=== PATIENT | male | born 1950 | race Caucasian/White ===

== ENCOUNTER → 2017-08-01 | Outpatient (CLI) | payer MEDICARE ==
[~2017-08-01] MED LIST: ASPI81CH; CENTRUM SILVER1 EAC4; GABA100; HYDACE10B; INDO25; NEOPOLHCSU RIGHTEAR; PRAV20; PRED20; TRAM50; VERA180ER
[2017-08-01 12:52] LABS: BASOPHILS ABSOLUTE AUTO 0.11 K/mm3 (0.00-0.23); BASOPHILS PERCENT AUTO 1 % (0-2); EOSINOPHILS ABSOLUTE AUTO 0.26 K/mm3 (0.00-0.68); EOSINOPHILS PERCENT AUTO 3 % (0-6); Hematocrit 39.8 % (37.0-53.0); Hemoglobin 13.7 g/dL (13.5-17.5); IMMATURE GRAN ABSOLUTE AUTO 0.07 K/mm3 (0.00-0.10); IMMATURE GRAN PERCENT AUTO 1 % (0-1); LYMPHOCYTES ABSOLUTE AUTO 2.95 K/mm3 (0.84-5.20); LYMPHOCYTES PERCENT AUTO 36 % (21-46); MONOCYTES ABSOLUTE AUTO 0.49 K/mm3 (0.16-1.47); MONOCYTES PERCENT AUTO 6 % (4-13); Mean Corpuscular HGB 29.9 pg (26.0-34.0); Mean Corpuscular HGB Conc 34.4 g/dL (31.5-36.5); Mean Corpuscular Volume 87 fL (80-100); Mean Platelet Volume 10.7 fL (9.1-12.4); NEUTROPHILS ABSOLUTE AUTO 4.25 K/mm3 (1.96-9.15); NEUTROPHILS PERCENT AUTO 52 % (41-73); Platelet Count 168 K/mm3 (150-400); RDW Coefficient Variation 13.5 % (11.7-14.2); RDW Standard Deviation 42.7 fL (35.1-46.3); Red Blood Cell Count 4.58 M/mm3 (4.30-5.90); White Blood Cell Count 8.13 K/mm3 (4.00-11.30)
[2017-08-01 13:06] LABS: Anion Gap 10 mmol/L (6-16); Blood Urea Nitrogen 10 mg/dL (8-24); Bun/Creatinine Ratio 11.5 (12.0-20.0); CO2, Blood 27 mmol/L (21-32); Calcium, Blood 9.5 mg/dL (8.5-10.1); Chloride, Blood 102 mmol/L (98-108); Creatinine, Blood 0.87 mg/dL (0.60-1.20); Glomerular Filtration Rate >60 (60-); Glucose, Blood 97 mg/dL (70-99); Potassium, Blood 3.9 mmol/L (3.5-5.5); Sodium, Blood 139 mmol/L (136-145)
[2017-08-01 13:07] LABS: Troponin I <0.017 ng/mL (0.000-0.040)
== END | disposition home or self-care (01) ==
LOC: LAB SHORT 12:48 → LAB EV 12:48
PROVIDERS: Physician Assistant Medical
DX: R06.00 Dyspnea, unspecified (principal); R07.9 Chest pain, unspecified
CPT/HCPCS: 80048; 84484; 85025

== ENCOUNTER 2018-10-08 09:41 | Day surgery (SDC) | payer MEDICARE, OTHER ==
--- NOTE | 2018-10-08 10:04 | NUR ---
AMBULATORY INTO STEP. PT REPORTS LOWER BACK PAIN 05/03. VS WDL. LUNGS CLEAR.
--- NOTE | 2018-10-08 10:57 | NUR ---
Ambulatory in Day Surgery Discharge instructions reviewed with patient. Patient verbalizes understanding. Copy given to patient to take home.
[2018-11-23] MEDS ORDERED: Pravachol40 MG PO (09:20)
[2018-11-23] MEDS ORDERED: Aspirin EC81 MG PO (09:20)
[2018-11-23] MEDS ORDERED: Hair, Skin & N1 EACH PO (09:21)
== END 2018-10-08 10:57 | disposition home or self-care (01) ==
LOC: ORSCMMR 09:41 → ORD 11:00
PROVIDERS: Orthopaedic Surgery
PROC: 3E0R33Z Introduction of Anti-inflammatory into Spinal Canal, Percutaneous Approach (ICD-10-PCS; principal; 2018-10-08 11:00)
DX: M54.16 Radiculopathy, lumbar region (principal); M48.07 Spinal stenosis, lumbosacral region; I10 Essential (primary) hypertension; E78.5 Hyperlipidemia, unspecified; I25.10 Atherosclerotic heart disease of native coronary artery without angina pectoris; F17.210 Nicotine dependence, cigarettes, uncomplicated; Z79.899 Other long term (current) drug therapy
CPT/HCPCS: J1040

== ENCOUNTER 2018-11-26 06:57 | Day surgery (SDC) | payer MEDICARE, OTHER ==
[~2018-11-26] VITALS: Ht 180.3 cm; Wt 85.2 kg
[~2018-11-26 06:57] MED LIST changes: +Aspirin EC81 MG PO; +Hair, Skin & N1 EACH PO; +Pravachol40 MG PO
--- NOTE | 2018-11-26 07:59 | NUR ---
History, Chart, Medications and Allergies reviewed before start of procedure. Patient confirms NPO status and agrees with scheduled surgery. Lungs clear T/O to Auscultation. Patient States Post-Procedure ride home has been arranged. Patient states colon prep results clear. Pre-Op teaching done. Pt verbalizes understanding.
--- NOTE | 2018-11-26 08:42 | NUR ---
11/26/18 0842 David Arteaga History, Chart, Medications and Allergies reviewed before start of procedure.MONITOR INTACT WITH CONTINUOUS PULSE OXIMETRY AND INTERMITTENT BP.3-LEAD EKG REVIEWED WITH PHYSICIAN PRIOR TO START OF PROCEDURE.O2 VIA N/C INTACT THROUGHOUT SEDATION/PROCEDURE. Patient confirms NPO status and agrees with scheduled surgery.PATIENT DETERMINED TO BE ASA APPROPRIATE FOR PROPOFOL SEDATION PRIOR TO START OF PROCEDURE BY DR. WINN.
--- NOTE | 2018-11-26 09:42 | NUR ---
Discharge instructions reviewed with patient. Patient verbalizes understanding. Copy given to patient to take home. TOLERATED WATER WELL, NO C/O. Discharged via wheelchair to private car for ride home.
== END 2018-11-26 23:08 | disposition home or self-care (01) ==
LOC: ORSCMMR 06:57 → ORD 08:30 → ORSCMMR 08:30
PROVIDERS: Internal Medicine Gastroenterology
PROC: 0DBN8ZX Excision of Sigmoid Colon, Via Natural or Artificial Opening Endoscopic, Diagnostic (ICD-10-PCS; principal; 2018-11-26 08:30)
PROC: 0DBK8ZX Excision of Ascending Colon, Via Natural or Artificial Opening Endoscopic, Diagnostic (ICD-10-PCS; principal; 2018-11-26 08:30)
DX: Z12.11 Encounter for screening for malignant neoplasm of colon (principal); K63.5 Polyp of colon; D12.2 Benign neoplasm of ascending colon; D12.5 Benign neoplasm of sigmoid colon; E78.00 Pure hypercholesterolemia, unspecified; F17.210 Nicotine dependence, cigarettes, uncomplicated; J44.9 Chronic obstructive pulmonary disease, unspecified
CPT/HCPCS: 88305; J2704; J7120

== ENCOUNTER → 2018-12-19 | Outpatient (CLI) | payer MEDICARE, OTHER ==
[~2018-12-19] MED LIST changes: +Bactrim Ds Tab1 EACH PO; +CEPH500 PO
== END | disposition home or self-care (01) ==
LOC: PLD 11:50 → LAB SHORT 11:50
DX: D48.5 Neoplasm of uncertain behavior of skin (principal)
CPT/HCPCS: 88305

== ENCOUNTER 2018-12-20 19:03 | Emergency (ER) | payer MEDICARE, OTHER ==
[~2018-12-20] VITALS: Ht 180.3 cm; Wt 87.1 kg
[~2018-12-20 19:03] MED LIST changes: -Bactrim Ds Tab1 EACH PO; -CEPH500 PO
== END 2018-12-20 19:38 | disposition home or self-care (01) ==
LOC: ER 19:03
DX: L76.21 Postprocedural hemorrhage of skin and subcutaneous tissue following a dermatologic procedure (principal); F17.210 Nicotine dependence, cigarettes, uncomplicated
CPT/HCPCS: 99283

== ENCOUNTER 2019-02-09 13:49 | Emergency (ER) | payer MEDICARE, OTHER ==
[~2019-02-09] VITALS: Ht 180.3 cm; Wt 87.1 kg
[2019-02-09] MEDS ORDERED: CEPH500 PO (14:30)
[2019-02-09] MEDS ORDERED: Bactrim Ds Tab1 EACH PO (14:39)
== END 2019-02-09 14:52 | disposition home or self-care (01) ==
LOC: ER 13:49
DX: L03.213 Periorbital cellulitis (principal); F17.200 Nicotine dependence, unspecified, uncomplicated; Z85.828 Personal history of other malignant neoplasm of skin; Z88.8 Allergy status to other drugs, medicaments and biological substances; Z91.018 Allergy to other foods; Z79.899 Other long term (current) drug therapy; Z79.82 Long term (current) use of aspirin
CPT/HCPCS: 99283

== ENCOUNTER 2019-07-25 17:29 | Emergency (ER) | payer MEDICARE, OTHER ==
[~2019-07-25] VITALS: Ht 180.3 cm; Wt 86.2 kg
[~2019-07-25 17:29] MED LIST changes: +Bactrim Ds Tab1 EACH PO; +CEPH500 PO
[2019-07-25] MEDS ORDERED: Cleocin HCl300 MG PO (18:49)
[2019-07-25] MEDS ORDERED: Norco 5-325 Ta1 EACH PO (18:51)
== END 2019-07-25 19:05 | disposition home or self-care (01) ==
LOC: ER 17:29
DX: K02.9 Dental caries, unspecified (principal); Z88.8 Allergy status to other drugs, medicaments and biological substances; E78.00 Pure hypercholesterolemia, unspecified; F17.210 Nicotine dependence, cigarettes, uncomplicated; Z88.6 Allergy status to analgesic agent; Z79.82 Long term (current) use of aspirin; Z79.899 Other long term (current) drug therapy
CPT/HCPCS: 99283; A9270-GY

== ENCOUNTER 2020-05-23 14:38 | Emergency (ER) | payer MEDICARE, SELFPAY ==
[~2020-05-23] VITALS: Ht 180.3 cm; Wt 89.8 kg
[~2020-05-23 14:38] MED LIST changes: -Aspirin EC81 MG PO; +Cleocin HCl300 MG PO; -Hair, Skin & N1 EACH PO; +Norco 5-325 Ta1 EACH PO; -Pravachol40 MG PO
[2020-05-23 15:14] LABS: BASOPHILS ABSOLUTE AUTO 0.09 K/mm3 (0.00-0.23); BASOPHILS PERCENT AUTO 1 % (0-2); EOSINOPHILS ABSOLUTE AUTO 0.17 K/mm3 (0.00-0.68); EOSINOPHILS PERCENT AUTO 2 % (0-6); Hemoglobin 13.8 g/dL (13.5-17.5); IMMATURE GRAN ABSOLUTE AUTO 0.06 K/mm3 (0.00-0.10); IMMATURE GRAN PERCENT AUTO 1 % (0-1); LYMPHOCYTES ABSOLUTE AUTO 2.97 K/mm3 (0.84-5.20); LYMPHOCYTES PERCENT AUTO 34 % (21-46); MONOCYTES ABSOLUTE AUTO 0.55 K/mm3 (0.16-1.47); MONOCYTES PERCENT AUTO 6 % (4-13); Mean Corpuscular HGB 29.1 pg (26.0-34.0); Mean Corpuscular HGB Conc 32.9 g/dL (31.5-36.5); Mean Corpuscular Volume 88 fL (80-100); Mean Platelet Volume 11.6 fL (9.1-12.4); NEUTROPHILS ABSOLUTE AUTO 4.98 K/mm3 (1.96-9.15); NEUTROPHILS PERCENT AUTO 57 % (41-73); Platelet Count 173 K/mm3 (150-400); RDW Coefficient Variation 13.2 % (11.7-14.2); RDW Standard Deviation 42.8 fL (35.1-46.3); Red Blood Cell Count 4.75 M/mm3 (4.30-5.90); White Blood Cell Count 8.82 K/mm3 (4.00-11.30)
[2020-05-23 15:36] LABS: Alanine Aminotransfer (ALT/SGP 30 U/L (12-78); Albumin, Blood 3.7 g/dL (3.4-5.0); Albumin/Globulin Ratio 1.1 (0.8-1.8); Alk Phos 89 U/L (50-136); Anion Gap 8 mmol/L (6-16); Aspartate Aminotrans (AST/SGOT 19 U/L (12-37); Bilirubin, Total 0.3 mg/dL (0.1-1.0); Blood Urea Nitrogen 11 mg/dL (8-24); Bun/Creatinine Ratio 12.2 (12.0-20.0); CO2, Blood 24 mmol/L (21-32); Chloride, Blood 108 mmol/L (98-108); Creatinine, Blood 0.91 mg/dL (0.60-1.20); Globulin, Blood 3.5 g/dL (2.2-4.0); Glomerular Filtration Rate >60 (60-); Glucose, Blood 97 mg/dL (70-99); Potassium, Blood 3.7 mmol/L (3.5-5.5); Sodium, Blood 140 mmol/L (136-145); Total Protein, Blood 7.2 g/dL (6.4-8.2); Troponin I 0.039 ng/mL (0.000-0.040)
[2020-05-23] MEDS ORDERED: Pravachol40 MG PO (15:37)
[2020-05-23] MEDS ORDERED: Hair, Skin & N1 EACH PO (16:25)
[2020-05-23] MEDS ORDERED: Aspirin EC81 MG PO (16:25)
[2020-05-23] MEDS ORDERED: Acetaminophen325 M1 PO (16:26)
[2020-05-23] MEDS ORDERED: Prednisone50 MG PO (19:44)
[2020-05-23] MEDS ORDERED: AZIT250 PO (19:44)
[2020-05-23] MEDS ORDERED: Ventolin/Prove6.7 GM INH (19:44)
== END 2020-05-23 20:00 | disposition home or self-care (01) ==
LOC: ER 14:38
PROVIDERS: Physician Assistant
DX: J44.1 Chronic obstructive pulmonary disease with (acute) exacerbation (principal); R07.9 Chest pain, unspecified; E78.00 Pure hypercholesterolemia, unspecified; Z79.52 Long term (current) use of systemic steroids; Z79.82 Long term (current) use of aspirin; Z88.6 Allergy status to analgesic agent; Z88.5 Allergy status to narcotic agent; Z79.899 Other long term (current) drug therapy; Z87.891 Personal history of nicotine dependence
CPT/HCPCS: 36415; 71046; 71260; 80053; 84484; 85025; 93005; 93010; 93971; 94640; 99285-25; J7512; Q9967

== ENCOUNTER 2020-06-01 14:14 | Inpatient (IN) | payer MEDICARE, SELFPAY ==
[~2020-06-01] VITALS: Ht 180.3 cm; Wt 83.9 kg
[~2020-06-01 14:14] MED LIST changes: +AZIT250 PO; +Acetaminophen325 M1 PO; +Aspirin EC81 MG PO; +Hair, Skin & N1 EACH PO; +Pravachol40 MG PO; +Prednisone50 MG PO; +Ventolin/Prove6.7 GM INH
[2020-06-01 15:26] LABS: BASOPHILS ABSOLUTE AUTO 0.11 K/mm3 (0.00-0.23); BASOPHILS PERCENT AUTO 1 % (0-2); EOSINOPHILS ABSOLUTE AUTO 0.24 K/mm3 (0.00-0.68); EOSINOPHILS PERCENT AUTO 2 % (0-6); Hematocrit 40.6 % (37.0-53.0); Hemoglobin 13.5 g/dL (13.5-17.5); IMMATURE GRAN ABSOLUTE AUTO 0.15 K/mm3 (0.00-0.10); IMMATURE GRAN PERCENT AUTO 1 % (0-1); LYMPHOCYTES ABSOLUTE AUTO 3.65 K/mm3 (0.84-5.20); LYMPHOCYTES PERCENT AUTO 34 % (21-46); MONOCYTES ABSOLUTE AUTO 0.76 K/mm3 (0.16-1.47); MONOCYTES PERCENT AUTO 7 % (4-13); Mean Corpuscular HGB 29.5 pg (26.0-34.0); Mean Corpuscular HGB Conc 33.3 g/dL (31.5-36.5); Mean Corpuscular Volume 89 fL (80-100); Mean Platelet Volume 11.8 fL (9.1-12.4); NEUTROPHILS ABSOLUTE AUTO 5.86 K/mm3 (1.96-9.15); NEUTROPHILS PERCENT AUTO 54 % (41-73); Platelet Count 183 K/mm3 (150-400); RDW Coefficient Variation 13.5 % (11.7-14.2); RDW Standard Deviation 43.8 fL (35.1-46.3); Red Blood Cell Count 4.58 M/mm3 (4.30-5.90); White Blood Cell Count 10.77 K/mm3 (4.00-11.30)
[2020-06-01 19:54] LABS: Alanine Aminotransfer (ALT/SGP 34 U/L (12-78); Albumin, Blood 3.9 g/dL (3.4-5.0); Albumin/Globulin Ratio 1.3 (0.8-1.8); Alk Phos 81 U/L (50-136); Anion Gap 5 mmol/L (6-16); Aspartate Aminotrans (AST/SGOT 14 U/L (12-37); Bilirubin, Total 0.3 mg/dL (0.1-1.0); Blood Urea Nitrogen 12 mg/dL (8-24); Bun/Creatinine Ratio 13.2 (12.0-20.0); CO2, Blood 26 mmol/L (21-32); Calcium, Blood 9.1 mg/dL (8.5-10.1); Chloride, Blood 109 mmol/L (98-108); Creatinine, Blood 0.91 mg/dL (0.60-1.20); Glomerular Filtration Rate >60 (60-); Glucose, Blood 107 mg/dL (70-99); Potassium, Blood 3.9 mmol/L (3.5-5.5); Sodium, Blood 140 mmol/L (136-145); Total Protein, Blood 6.9 g/dL (6.4-8.2); Troponin I 0.049 ng/mL (0.000-0.040)
[2020-06-01] MEDS ORDERED: Ventolin/Prove6.7 GM INH (21:02)
[2020-06-01] MEDS ORDERED: BUPR150ER PO (21:03)
[2020-06-01] MEDS ORDERED: PRAVASTATIN SOD40 MG PO (21:03)
[2020-06-02 03:28] LABS: BASOPHILS ABSOLUTE AUTO 0.04 K/mm3 (0.00-0.23); BASOPHILS PERCENT AUTO 0 % (0-2); EOSINOPHILS ABSOLUTE AUTO 0.03 K/mm3 (0.00-0.68); EOSINOPHILS PERCENT AUTO 0 % (0-6); Hematocrit 40.4 % (37.0-53.0); Hemoglobin 13.4 g/dL (13.5-17.5); IMMATURE GRAN ABSOLUTE AUTO 0.16 K/mm3 (0.00-0.10); IMMATURE GRAN PERCENT AUTO 2 % (0-1); LYMPHOCYTES ABSOLUTE AUTO 1.13 K/mm3 (0.84-5.20); LYMPHOCYTES PERCENT AUTO 11 % (21-46); MONOCYTES ABSOLUTE AUTO 0.17 K/mm3 (0.16-1.47); MONOCYTES PERCENT AUTO 2 % (4-13); Mean Corpuscular HGB 29.3 pg (26.0-34.0); Mean Corpuscular HGB Conc 33.2 g/dL (31.5-36.5); Mean Corpuscular Volume 88 fL (80-100); Mean Platelet Volume 11.7 fL (9.1-12.4); NEUTROPHILS ABSOLUTE AUTO 8.69 K/mm3 (1.96-9.15); NEUTROPHILS PERCENT AUTO 85 % (41-73); Platelet Count 168 K/mm3 (150-400); RDW Coefficient Variation 13.4 % (11.7-14.2); RDW Standard Deviation 43.4 fL (35.1-46.3); Red Blood Cell Count 4.57 M/mm3 (4.30-5.90); White Blood Cell Count 10.22 K/mm3 (4.00-11.30)
[2020-06-02 03:50] LABS: Anion Gap 9 mmol/L (6-16); Blood Urea Nitrogen 16 mg/dL (8-24); Bun/Creatinine Ratio 15.7 (12.0-20.0); CO2, Blood 23 mmol/L (21-32); Calcium, Blood 8.9 mg/dL (8.5-10.1); Chloride, Blood 109 mmol/L (98-108); Creatinine, Blood 1.02 mg/dL (0.60-1.20); Glomerular Filtration Rate >60 (60-); Glucose, Blood 144 mg/dL (70-99); Sodium, Blood 141 mmol/L (136-145); Troponin I 0.025 ng/mL (0.000-0.040)
--- NOTE | 2020-06-02 10:28 | NUR ---
ECHOCARDIOGRAM COMPLETED
--- NOTE | 2020-06-02 15:24 | NUR ---
PT ARRIVED IN THE UNIT VIA STRETCHER PT WAS ABLE TO AMBULATE STAND BY ASSISTS TO ROOM BED. PT ALERT AND ORIENTED X4 AT BASELINE, PT IS HERE FOR ACUTE ON CHRONIC CHF, PT HAS BEEN RECEIVING LASIX DOSE IN THE ER, STATED HE FEELS MUCH BETTER, STILL HAS MILD SOB/SOB WITH EXERTION. PT WANTING TO GET IN THE SHOWER UPON ARRIVAL WAS INFORMED TO WAIT UNTIL ASSESSMENT AND ADMIT STUFFS ARE DONE, PT WAS AGREEABLE. PT DENIES CHEST PAIN/PRESSURE, STATED HE HAD CRAMPING PAIN LIKE ON THE LEFT UPPER CHEST THIS AM THAT DIDNT LAST LONG. VITALS HRR SR BBB 100'S, BP SYSTOLIC 110'S, SATS ABOVE 95% ON RA, AFEBRILE. PT IS NOW CURRENTLY IN THE SHOWER. NO OTHER ISSUES AT THIS TIME, WILL MONITOR UNTIL END OF SHIFT
[2020-06-03 04:52] LABS: Hematocrit 38.5 % (37.0-53.0); Hemoglobin 12.9 g/dL (13.5-17.5); Mean Corpuscular HGB 29.3 pg (26.0-34.0); Mean Corpuscular HGB Conc 33.5 g/dL (31.5-36.5); Mean Corpuscular Volume 87 fL (80-100); Mean Platelet Volume 11.8 fL (9.1-12.4); Platelet Count 172 K/mm3 (150-400); RDW Coefficient Variation 13.4 % (11.7-14.2); RDW Standard Deviation 43.2 fL (35.1-46.3); Red Blood Cell Count 4.41 M/mm3 (4.30-5.90); White Blood Cell Count 13.83 K/mm3 (4.00-11.30)
[2020-06-03 05:08] LABS: Anion Gap 9 mmol/L (6-16); Blood Urea Nitrogen 19 mg/dL (8-24); Bun/Creatinine Ratio 16.8 (12.0-20.0); CO2, Blood 26 mmol/L (21-32); Calcium, Blood 8.4 mg/dL (8.5-10.1); Chloride, Blood 107 mmol/L (98-108); Creatinine, Blood 1.13 mg/dL (0.60-1.20); Glomerular Filtration Rate >60 (60-); Glucose, Blood 110 mg/dL (70-99); Potassium, Blood 3.6 mmol/L (3.5-5.5); Sodium, Blood 142 mmol/L (136-145)
--- NOTE | 2020-06-03 06:04 | NUR ---
SHIFT SUMMARY PT IS A 70 Y/O MALE, ADMITTED FOR ACUTE ON CHRONIC CHF. HE IS A&O X 4, SBA TO THE BATHROOM. PT DENIED ANY COMPLAINTS OF PAIN OR NAUSEA, BUT REPORTED MILD DYSPNEA WITH EXERTION. VITAL SIGNS STABLE. PT SLEPT WELL THROUGH THE NIGHT. NO ACUTE CHANGES IN PT CONDITION NOTED. WILL CONTINUE TO MONITOR AND TREAT PER EMAR UNTIL HAND OFF TO DAY SHIFT RN.
--- NOTE | 2020-06-03 17:47 | NUR ---
PT SUMMARY: PT WITH NO ACUTE CHANGE FOR THE SHIFT, BP WAS ON THE LOW SIDE THIS MORNING AT [address] WEINSTEIN, DR SOLANO CAME AND SAW PT RESUMED LASIX AT 20MG IV Q6 HRS HOLD IF MAP IS BELOW 65, PT TO BE NPO AFTER MIDNIGHT FOR ANGIO PROCEDURE IN AM, PENDING COVID SWAB PRE PROCEDURE FOR TOMORROW, EF LOW AT 15% PT WAS A LITTLE BIT EMOTIONAL ABOUT THE RESULTS, PT PROVIDED EDUCATION AND PLAN OF CARE. PT STILL HAS MILD SOB PT STATED IT STAYED THE SAME, DENIES CHEST PAIN/PRESSURE. NO OTHER ISSUES ENCOUNTERED, ABLE TO MAKE NEEDS KNOWN, WILL MONITOR UNTIL END OF SHIFT
[2020-06-03 18:16] LABS: Influenza A, PCR NEGATIVE (NEGATIVE); Influenza B, PCR NEGATIVE (NEGATIVE); Resp Syncytial Virus, PCR NEGATIVE (NEGATIVE); SARS-Cov-2 (COVID-19) PCR, MMC NEGATIVE (NEGATIVE)
--- NOTE | 2020-06-04 06:01 | NUR ---
SHIFT SUMMARY PATIENT PLEASENT AND COOPERATIVE THROUGHOUT THE NIGHT. PATIENT REQUESTED SOMETHING TO HELP HIM SLEEP STATING HE JUST HASN'T BEEN SLEEPING WELL RECENTLY. PATIENT THEN APPEARED TO SLEEP WELL THROUGHOUT THE REST OF THE NIGHT ONCE SLEEPING AID WAS OBTAINED FROM NURSE PRACTIONER SUKI AND GIVEN PER EMAR. THIS MORNING PATIENT STATED THAT HE FELT HE SLEPT MUCH BETTER TONIGHT. PATIENT HAS BEEN NPO SINCE 0000. VITAL SIGNS CHARTED. MAPS HAVE BEEN GREATER THAN 65. PATIENT CURRENTLY APPEARS TO BE SLEEPING WELL. WILL CONTINUE CURRENT PLAN OF CARE.
--- NOTE | 2020-06-04 17:51 | NUR ---
SHIFT SUMMARY NO ACUTE EVENTS THIS SHIFT, VSS. PATIENT HAD ANGIO TODAY, R. RADIAL SITE RECOVERED WITHOUT EVENT, NO DRAINAGE/HEMATOMA NOTED AT RADIAL PUNCTURE SITE. R. AC VENOUS SITE COVERED WITH DRESSING, SMALL DRAINAGE NOTED ON ARRIVAL TO UNIT, NO ADDITIONAL DRAINAGE NOTED REST OF SHIFT. PATIENT DENIES CHEST PAIN THIS SHIFT. CONTINUED ON IV LASIX FOR DIURESIS, BREATHING TREATMENTS PER RT.
[2020-06-05 04:48] LABS: Hemoglobin 14.1 g/dL (13.5-17.5); Mean Corpuscular HGB 28.8 pg (26.0-34.0); Mean Corpuscular HGB Conc 32.8 g/dL (31.5-36.5); Mean Corpuscular Volume 88 fL (80-100); Mean Platelet Volume 11.8 fL (9.1-12.4); Platelet Count 175 K/mm3 (150-400); RDW Coefficient Variation 13.4 % (11.7-14.2); RDW Standard Deviation 43.1 fL (35.1-46.3); Red Blood Cell Count 4.89 M/mm3 (4.30-5.90); White Blood Cell Count 10.11 K/mm3 (4.00-11.30)
[2020-06-05 05:36] LABS: Anion Gap 8 mmol/L (6-16); Blood Urea Nitrogen 29 mg/dL (8-24); Bun/Creatinine Ratio 25.2 (12.0-20.0); CO2, Blood 28 mmol/L (21-32); Calcium, Blood 8.7 mg/dL (8.5-10.1); Chloride, Blood 104 mmol/L (98-108); Creatinine, Blood 1.15 mg/dL (0.60-1.20); Glomerular Filtration Rate >60 (60-); Glucose, Blood 107 mg/dL (70-99); Potassium, Blood 3.1 mmol/L (3.5-5.5); Sodium, Blood 140 mmol/L (136-145)
--- NOTE | 2020-06-05 06:33 | NUR ---
SHIFT SUMMARY NO ACUTE CHANGES THIS SHIFT. VSS. RW SITE STABLE. RAC VNOUS SITE STABLE. PT DENYING CP/PRESSURE THIS SHIFT. REMAINS IN SR BBB. RECEIVING IV LASIX AND VOIDING. USES CALL LIGHT APPROPRIATELY. WILL CONTINUE TO MONITOR UNTIL SHIFT CHANGE.
--- NOTE | 2020-06-05 17:02 | NUR ---
SHIFT SUMMARY NO ACUTE EVENTS THIS SHIFT, VSS. PATIENT ALERT AND ORIENTED, SBA TO BATHROOM, UP FOR SHOWER THIS SHIFT AND TOLERATED WELL. NO SIGNS OF DISCHARGE AT R. WRIST ANGIO PUNCTURE SITE, ARM BOARD IN PLACE. IV DIURESIS CONTINUED WITH LASIX THIS SHIFT, PO K+ REPLACEMENT STARTED. BNP REMAINS ELEVATED. DR. SOLANO DISCUSSED POSSIBILITY OF GOING HOME WITH A LIFE VEST WITH PATIENT TODAY, PATIENT AGREEBLE. RECIEVED BREATHING TREATMENTS PER RT.
[2020-06-06 04:05] LABS: Hematocrit 40.7 % (37.0-53.0); Hemoglobin 13.6 g/dL (13.5-17.5); Mean Corpuscular HGB 29.2 pg (26.0-34.0); Mean Corpuscular HGB Conc 33.4 g/dL (31.5-36.5); Mean Corpuscular Volume 87 fL (80-100); Mean Platelet Volume 11.8 fL (9.1-12.4); Platelet Count 163 K/mm3 (150-400); RDW Coefficient Variation 13.2 % (11.7-14.2); RDW Standard Deviation 41.9 fL (35.1-46.3); Red Blood Cell Count 4.66 M/mm3 (4.30-5.90); White Blood Cell Count 11.89 K/mm3 (4.00-11.30)
[2020-06-06 04:23] LABS: Alanine Aminotransfer (ALT/SGP 33 U/L (12-78); Albumin, Blood 3.6 g/dL (3.4-5.0); Albumin/Globulin Ratio 1.1 (0.8-1.8); Alk Phos 77 U/L (50-136); Anion Gap 7 mmol/L (6-16); Aspartate Aminotrans (AST/SGOT 14 U/L (12-37); Bilirubin, Total 0.6 mg/dL (0.1-1.0); Blood Urea Nitrogen 35 mg/dL (8-24); Bun/Creatinine Ratio 30.2 (12.0-20.0); CO2, Blood 29 mmol/L (21-32); Calcium, Blood 8.7 mg/dL (8.5-10.1); Chloride, Blood 103 mmol/L (98-108); Creatinine, Blood 1.16 mg/dL (0.60-1.20); Globulin, Blood 3.3 g/dL (2.2-4.0); Glomerular Filtration Rate >60 (60-); Glucose, Blood 98 mg/dL (70-99); Potassium, Blood 3.2 mmol/L (3.5-5.5); Sodium, Blood 139 mmol/L (136-145); Total Protein, Blood 6.9 g/dL (6.4-8.2)
--- NOTE | 2020-06-06 05:18 | NUR ---
SHIFT SUMMARY NO ACUTE CHANGES THIS SHIFT. VSS. RW SITE REMAINS STABLE. PT CONTINUING TO DENY CP/PRESSURE BUT DOES HAVE EPISODES OF SOB THAT RESOLVE. SOFT BP'S BUT MAAP >65. PT UP TO BATHROOM WITH ASSIST. WILL CONTINUE TO MONITOR UNTIL SHIFT CHANGE.
--- NOTE | 2020-06-06 17:19 | NUR ---
SHIFT SUMMARY NO ACUTE EVENTS THIS SHIFT, PATIENT DENIED CHEST PAIN/PRESSURE, VSS. PATIENT ABLE TO AMBULATE IN ROOM AND TO BATHROOM WITH SBA. PATIENT ALERT AND ORIENTED, ON ROOM AIR, RECIEVED BREATHING TREATMENTS PER RT. VSS, NO SIGNS OF DISCHARGE/HEMATOMA AT R. RADIAL SITE.
--- NOTE | 2020-06-06 17:20 | NUR ---
REPORT GIVEN TO JOSELYN BLANCO ON SURGICAL.
--- NOTE | 2020-06-06 18:09 | NUR ---
PT TO ROOM 208 FROM PCU. TELE CONFIRMED. THIS RN BEEN GIVEN REPORT. ASSUMING CARE OF PT AT THIS TIME, WILL GIVE REPORT TO YADIRA RN.
--- NOTE | 2020-06-06 18:50 | NUR ---
REPORT GIVEN TO YADIRA RN.
--- NOTE | 2020-06-07 04:24 | NUR ---
SHIFT SUMMARY PT RESTED WELL T/O NIGHT. AAOX4. PT DENIES DISCOMFORT/NAUSEA/EMESIS THIS SHIFT. PT REPORTING INTERMITTENT SOB SPELLS WITH MINIMAL EXERTION, DENIES THIS SHIFT. TELEMTRY IN PLACE, NSR WITH BBB 80s TO 90s. SBA UP TO RESTROOM. GOOD PO INTAKE + OUTPUT. NO ACUTE CHANGES OVER NIGHT. PT CURRENTLY RESTING IN BED WITH CALL LIGHT IN REACH.
[2020-06-07 10:17] LABS: Anion Gap 5 mmol/L (6-16); Blood Urea Nitrogen 31 mg/dL (8-24); Bun/Creatinine Ratio 31.5 (12.0-20.0); CO2, Blood 29 mmol/L (21-32); Calcium, Blood 8.9 mg/dL (8.5-10.1); Chloride, Blood 103 mmol/L (98-108); Creatinine, Blood 0.98 mg/dL (0.60-1.20); Glomerular Filtration Rate >60 (60-); Glucose, Blood 103 mg/dL (70-99); Magnesium, Blood 2.6 mg/dL (1.6-2.4); Potassium, Blood 3.8 mmol/L (3.5-5.5); Sodium, Blood 137 mmol/L (136-145)
--- NOTE | 2020-06-07 15:41 | NUR ---
SHIFT SUMMARY PT A&OX4, VSS, ANANDA PO, DENIES SOB, DENIES PAIN, AMBULATING INDEPENDENTLY TO BRP/IN ROOM. WILL REPORT TO ONCOMING NOC RN.
--- NOTE | 2020-06-08 04:29 | NUR ---
SHIFT SUMMARY: MAKENZIE IS A&OX4. VSS, NO ACUTE EVENTS OVERNIGHT, MAINTAINING SATS ORA. HE DENIES ANY PAIN. HE REPORTS HAVING AN APPOINTMENT WITH DR. AGUILAR TODAY WHICH HE WAS ENCOURAGED TO CALL THE OFFICE AND RESCHEDULE. HE IS INDEPENDENT IN THE ROOM, VOIDING WITHOUT DIFFICULTY. HE USES THE CALL LIGHT APPROPRIATELY. HE IS LYING IN BED WITH EVEN, UNLABORED RESPIRATIONS, EYES CLOSED. WILL REPORT TO DAY SHIFT RN.
[2020-06-08 09:49] LABS: Anion Gap 5 mmol/L (6-16); Blood Urea Nitrogen 24 mg/dL (8-24); Bun/Creatinine Ratio 24.6 (12.0-20.0); CO2, Blood 28 mmol/L (21-32); Calcium, Blood 8.6 mg/dL (8.5-10.1); Chloride, Blood 104 mmol/L (98-108); Creatinine, Blood 0.98 mg/dL (0.60-1.20); Glomerular Filtration Rate >60 (60-); Glucose, Blood 101 mg/dL (70-99); Potassium, Blood 4.2 mmol/L (3.5-5.5); Sodium, Blood 137 mmol/L (136-145)
[2020-06-08] MEDS ORDERED: FURO40 PO (13:06)
[2020-06-08] MEDS ORDERED: Lisinopril2.5 MG PO (13:07)
[2020-06-08] MEDS ORDERED: POTCHL20ER PO (13:09)
[2020-06-08] MEDS ORDERED: METO25ER PO (13:09)
--- NOTE | 2020-06-08 15:46 | NUR ---
DC'D HOME, DC INSTRUCTIONS GIVEN TO PT AND SIG. OTHER, VERBALIZED UNDERSTANDING, PER ANGEL Garcia/ ADDISON, PT HAS HAD EDUCATION ON LIFE VEST APPLICATION AND USE, PT WAS ABLE TO PUT VEST ON WITHOUT DIFFICULTY, IV DC'D, CATH INTACT.
== END 2020-06-08 15:35 | disposition home or self-care (01) | DRG 287 ==
LOC: ER 14:14 → ERHOLD 21:49 → PCU 21:49 → SURS 06-06 18:50
PROVIDERS: Internal Medicine; Internal Medicine Cardiovascular Disease; Nurse Practitioner Acute Care; Physician Assistant; ADMIT Family Medicine
PROC: 4A023N8 Measurement of Cardiac Sampling and Pressure, Bilateral, Percutaneous Approach (ICD-10-PCS; principal; 2020-06-04)
PROC: B211YZZ Fluoroscopy of Multiple Coronary Arteries using Other Contrast (ICD-10-PCS; 2020-06-04)
DX: I11.0 Hypertensive heart disease with heart failure (principal); I42.8 Other cardiomyopathies; I50.43 Acute on chronic combined systolic (congestive) and diastolic (congestive) heart failure; J44.9 Chronic obstructive pulmonary disease, unspecified; E78.5 Hyperlipidemia, unspecified; E87.6 Hypokalemia; I27.22 Pulmonary hypertension due to left heart disease; Z87.891 Personal history of nicotine dependence; I25.10 Atherosclerotic heart disease of native coronary artery without angina pectoris; I08.2 Rheumatic disorders of both aortic and tricuspid valves
CPT/HCPCS: 0241U; 36415; 71046; 76937; 80048; 80053; 83735; 83880; 84484; 85025; 85027; 93005; 93010; 93460; 94640; 94760; 94762; 96372-59; 96374; 96375; 96376; 97112; 97162; 99152; 99153; 99285-25; A9270; C1769; C1894; C8929; J1100; J1644; J1650; J1940; J2250; J3010; J7030; J7050; Q9967

== ENCOUNTER 2020-07-11 11:36 | Emergency (ER) | payer MEDICARE, SELFPAY ==
[~2020-07-11] VITALS: Ht 180.3 cm; Wt 86.2 kg
[~2020-07-11 11:36] MED LIST changes: +BUPR150ER PO; +FURO40 PO; +Lisinopril2.5 MG PO; +METO25ER PO; +POTCHL20ER PO; +PRAVASTATIN SOD40 MG PO
[2020-07-11] MEDS ORDERED: ENTRESTO 24 MG1 EACH PO (12:15)
[2020-07-11 12:22] LABS: BASOPHILS PERCENT AUTO 1 % (0-2); EOSINOPHILS ABSOLUTE AUTO 0.15 K/mm3 (0.00-0.68); EOSINOPHILS PERCENT AUTO 2 % (0-6); Hematocrit 38.2 % (37.0-53.0); Hemoglobin 12.5 g/dL (13.5-17.5); IMMATURE GRAN ABSOLUTE AUTO 0.02 K/mm3 (0.00-0.10); IMMATURE GRAN PERCENT AUTO 0 % (0-1); LYMPHOCYTES ABSOLUTE AUTO 2.27 K/mm3 (0.84-5.20); LYMPHOCYTES PERCENT AUTO 31 % (21-46); MONOCYTES ABSOLUTE AUTO 0.42 K/mm3 (0.16-1.47); MONOCYTES PERCENT AUTO 6 % (4-13); Mean Corpuscular HGB 28.7 pg (26.0-34.0); Mean Corpuscular HGB Conc 32.7 g/dL (31.5-36.5); Mean Corpuscular Volume 88 fL (80-100); NEUTROPHILS ABSOLUTE AUTO 4.37 K/mm3 (1.96-9.15); NEUTROPHILS PERCENT AUTO 60 % (41-73); Platelet Count 149 K/mm3 (150-400); RDW Coefficient Variation 13.2 % (11.7-14.2); RDW Standard Deviation 41.9 fL (35.1-46.3); Red Blood Cell Count 4.36 M/mm3 (4.30-5.90); White Blood Cell Count 7.33 K/mm3 (4.00-11.30)
[2020-07-11 12:36] LABS: Alanine Aminotransfer (ALT/SGP 29 U/L (12-78); Albumin, Blood 3.9 g/dL (3.4-5.0); Albumin/Globulin Ratio 1.2 (0.8-1.8); Alk Phos 88 U/L (50-136); Anion Gap 7 mmol/L (6-16); Aspartate Aminotrans (AST/SGOT 18 U/L (12-37); Bilirubin, Total 0.4 mg/dL (0.1-1.0); Blood Urea Nitrogen 17 mg/dL (8-24); Bun/Creatinine Ratio 17.2 (12.0-20.0); CO2, Blood 22 mmol/L (21-32); Calcium, Blood 8.8 mg/dL (8.5-10.1); Chloride, Blood 110 mmol/L (98-108); Creatinine, Blood 0.99 mg/dL (0.60-1.20); Globulin, Blood 3.3 g/dL (2.2-4.0); Glomerular Filtration Rate >60 (60-); Glucose, Blood 122 mg/dL (70-99); Sodium, Blood 139 mmol/L (136-145); Total Protein, Blood 7.2 g/dL (6.4-8.2); Troponin I <0.015 ng/mL (0.000-0.040)
== END 2020-07-11 14:06 | disposition home or self-care (01) ==
LOC: ER 11:36
PROVIDERS: Emergency Medicine
DX: I50.9 Heart failure, unspecified (principal); Z79.82 Long term (current) use of aspirin; Z79.899 Other long term (current) drug therapy; Z87.891 Personal history of nicotine dependence
CPT/HCPCS: 36415; 71045; 80053; 83880; 84484; 85025; 93005; 93010; 99284-25; A9270

== ENCOUNTER 2020-07-31 10:12 | Inpatient (IN) | payer MEDICARE, SELFPAY ==
[~2020-07-31] VITALS: Ht 180.3 cm; Wt 82.0 kg
[~2020-07-31 10:12] MED LIST changes: +ENTRESTO 24 MG1 EACH PO
[2020-07-31 11:01] LABS: BASOPHILS ABSOLUTE AUTO 0.09 K/mm3 (0.00-0.23); BASOPHILS PERCENT AUTO 1 % (0-2); EOSINOPHILS ABSOLUTE AUTO 0.15 K/mm3 (0.00-0.68); EOSINOPHILS PERCENT AUTO 2 % (0-6); Hematocrit 37.3 % (37.0-53.0); Hemoglobin 12.5 g/dL (13.5-17.5); IMMATURE GRAN ABSOLUTE AUTO 0.02 K/mm3 (0.00-0.10); IMMATURE GRAN PERCENT AUTO 0 % (0-1); LYMPHOCYTES ABSOLUTE AUTO 2.33 K/mm3 (0.84-5.20); LYMPHOCYTES PERCENT AUTO 29 % (21-46); MONOCYTES ABSOLUTE AUTO 0.41 K/mm3 (0.16-1.47); MONOCYTES PERCENT AUTO 5 % (4-13); Mean Corpuscular HGB 28.9 pg (26.0-34.0); Mean Corpuscular HGB Conc 33.5 g/dL (31.5-36.5); Mean Corpuscular Volume 86 fL (80-100); Mean Platelet Volume 12.4 fL (9.1-12.4); NEUTROPHILS PERCENT AUTO 63 % (41-73); Platelet Count 156 K/mm3 (150-400); RDW Coefficient Variation 13.2 % (11.7-14.2); RDW Standard Deviation 41.5 fL (35.1-46.3); Red Blood Cell Count 4.33 M/mm3 (4.30-5.90)
[2020-07-31 11:31] LABS: Alanine Aminotransfer (ALT/SGP 25 U/L (12-78); Albumin, Blood 3.8 g/dL (3.4-5.0); Albumin/Globulin Ratio 1.2 (0.8-1.8); Alk Phos 71 U/L (50-136); Anion Gap 6 mmol/L (6-16); Aspartate Aminotrans (AST/SGOT 13 U/L (12-37); Bilirubin, Total 0.5 mg/dL (0.1-1.0); Blood Urea Nitrogen 20 mg/dL (8-24); Bun/Creatinine Ratio 19.4 (12.0-20.0); CO2, Blood 25 mmol/L (21-32); Calcium, Blood 8.9 mg/dL (8.5-10.1); Chloride, Blood 109 mmol/L (98-108); Creatinine, Blood 1.03 mg/dL (0.60-1.20); Globulin, Blood 3.2 g/dL (2.2-4.0); Glomerular Filtration Rate >60 (60-); Glucose, Blood 98 mg/dL (70-99); Sodium, Blood 140 mmol/L (136-145)
[2020-07-31] MEDS ORDERED: SPIRONOLACTONE25 MG PO (12:25)
[2020-07-31] MEDS ORDERED: ENTRESTO 49 MG1 EAC7 PO (12:25)
[2020-07-31] MEDS ORDERED: TORSE20 PO (12:26)
[2020-07-31] MEDS ORDERED: K-Dur 20 meq T20 MEQ PO (12:27)
--- NOTE | 2020-07-31 13:55 | NUR ---
PT ARRIVED TO PCU 15 VIA GURNEY, REPORT FROM ALIE BLANCO, PT IS A/OX3, PLEASANT AND COOPERATIVE WITH CARE, FOLLOWS COMMANDS WELL, REPORTS SOB, HE COMES WITH A LIFE VEST, LUNGS ARE CLEAR, DIM IN BASES, RESP EVEN AND UNLABORED, NO COUGH NTOED, HRR, TELE IN PLACE RUNNING SR PER MONITOR, SEE STRIP, NO EDEMA NOTED, PPP+1, CAP REFILL <3SEC, VS STABLE, AFEBRILE, IV SITE IS CLEAR AND PATENT, BTX4, ABD FLAT SOFT NONTENDER, VOIDS WITHOUT DIFF, SKIN C/W/D, MAEW, HORTENCIA, ORIENTED TO ROOM LAYOUT AND CALL SYSTEM, CALL LIGHT IN REACH.
--- NOTE | 2020-07-31 18:03 | NUR ---
pt doing ok, came in to see him, he reports he is breathing better at this time. call light in reach.
--- NOTE | 2020-08-01 03:24 | NUR ---
Patient slept well overnight. He states his SOB much improved. Getting oob independently to bathroom. Urine very pale yellow and clear. No complaints of pain or discomfort. Slight murmer noted on auscultation. lower extremities remain 1-2+, but patient states the swelling is improving
[2020-08-01 04:55] LABS: Anion Gap 4 mmol/L (6-16); Blood Urea Nitrogen 23 mg/dL (8-24); Bun/Creatinine Ratio 18.7 (12.0-20.0); CO2, Blood 30 mmol/L (21-32); Calcium, Blood 8.4 mg/dL (8.5-10.1); Chloride, Blood 107 mmol/L (98-108); Creatinine, Blood 1.23 mg/dL (0.60-1.20); Glomerular Filtration Rate >60 (60-); Glucose, Blood 97 mg/dL (70-99); Magnesium, Blood 2.4 mg/dL (1.6-2.4); Potassium, Blood 3.6 mmol/L (3.5-5.5); Sodium, Blood 141 mmol/L (136-145)
--- NOTE | 2020-08-01 09:18 | NUR ---
pt sitting on side of bed eating breakfast, a/ox3, pleasant and coopertive with care, follows commands well, denies pain, reports his sob is much better, states he had a good night, lungs are clear t/o, resp even and unlabored, no cough noted, hrr, tele in place running sr per monitor, see strip, no edema noted, ppp+1, cap refill <3 sec, vs stable, afebrile, iv site is clear and patent, btx4, abd flat soft nontender, voids clear yellow urine, skin c/w/d, maew, billy, call light in reach.
--- NOTE | 2020-08-01 12:30 | NUR ---
pt reports feeling sob, placed him on 2 liters 02 via n/c, resp even and unlabored, no cough noted, he was 94% on r/a, is 95% on 2 liters, no further changes. call light in reach.
--- NOTE | 2020-08-01 18:32 | NUR ---
pt doing ok, was able to take his o2 off after a few hrs, he reports the sob comes and goes, no further changes this shift. call light in reach.
[2020-08-02 04:34] LABS: Anion Gap 6 mmol/L (6-16); Blood Urea Nitrogen 22 mg/dL (8-24); Bun/Creatinine Ratio 20.2 (12.0-20.0); CO2, Blood 27 mmol/L (21-32); Calcium, Blood 8.6 mg/dL (8.5-10.1); Chloride, Blood 107 mmol/L (98-108); Creatinine, Blood 1.09 mg/dL (0.60-1.20); Glomerular Filtration Rate >60 (60-); Glucose, Blood 99 mg/dL (70-99); Potassium, Blood 3.6 mmol/L (3.5-5.5); Sodium, Blood 140 mmol/L (136-145)
--- NOTE | 2020-08-02 05:06 | NUR ---
SHIFT SUMMARY PT WAS ALERT, ORIENTED, AND COOPERATIVE WITH CARE. PT WAS INDEPENDENT IN THE ROOM AND STATED NO SOB WITH AMBULATION. ON ROOM AIR T/O THE NIGHT WITH 02 SATS >90% AND PT STATED BREATHING HAS IMPROVED. PT DENIED ANY CHEST PAIN OR DISCOMFORT. VITALS STABLE WITH BP 89-117 SYSTOLIC, MILD HYPOTENSION THIS AM AT 89/58. HR TACHY 100'S. PT HAD A QUIET UNEVENTFUL NIGHT, HE FEELS HE HAS IMPROVED GREATLY.
--- NOTE | 2020-08-02 11:32 | NUR ---
PT DISCHARGED TO HOME TODAY WITH DISCHARGE ORDERS. PT TO CONTINUE CURRENT HOME MEDS AND FF-UP WITH DR AGUILAR AND PCP. DISCHARGE INSTRUCTIONS DISCLOSED WITH THE PT, PT VERBALIZED UNDERSTANDING. NO OTHER ISSUES REPORTED PRIOR TO DISCHARGE. ALL BELONGINGS SENT WITH THE PT, TO DRIVE PT HOME. LIFE VEST ON UPON DISCHARGE. ACCOMPANIED VIA PCT AMBULATORY.
[2020-08-03] MEDS ORDERED: SPIR25 PO (23:24)
== END 2020-08-02 11:18 | disposition home or self-care (01) | DRG 293 ==
LOC: ER 10:12 → PCU 10:13
PROVIDERS: Emergency Medicine; Family Medicine; ADMIT Internal Medicine
DX: I11.0 Hypertensive heart disease with heart failure (principal); I50.43 Acute on chronic combined systolic (congestive) and diastolic (congestive) heart failure; J44.9 Chronic obstructive pulmonary disease, unspecified; E78.5 Hyperlipidemia, unspecified; I71.4 Abdominal aortic aneurysm, without rupture; Z87.891 Personal history of nicotine dependence; Z79.82 Long term (current) use of aspirin
CPT/HCPCS: 36415; 71045; 80048; 80053; 83735; 83880; 84484; 85025; 93005; 93010; 94760; 96372; 96374; 96376; 99285-25; A9270; G0378; J1650; J1940

== ENCOUNTER 2020-08-03 18:23 | Emergency (ER) | payer MEDICARE ==
[~2020-08-03] VITALS: Ht 180.3 cm; Wt 87.5 kg
[~2020-08-03 18:23] MED LIST changes: +ENTRESTO 49 MG1 EAC7 PO; +K-Dur 20 meq T20 MEQ PO; +SPIRONOLACTONE25 MG PO; +TORSE20 PO
[2020-08-03 19:35] LABS: BASOPHILS ABSOLUTE AUTO 0.08 K/mm3 (0.00-0.23); BASOPHILS PERCENT AUTO 1 % (0-2); EOSINOPHILS ABSOLUTE AUTO 0.16 K/mm3 (0.00-0.68); EOSINOPHILS PERCENT AUTO 2 % (0-6); Hematocrit 40.3 % (37.0-53.0); Hemoglobin 13.4 g/dL (13.5-17.5); IMMATURE GRAN ABSOLUTE AUTO 0.02 K/mm3 (0.00-0.10); IMMATURE GRAN PERCENT AUTO 0 % (0-1); LYMPHOCYTES ABSOLUTE AUTO 2.89 K/mm3 (0.84-5.20); LYMPHOCYTES PERCENT AUTO 32 % (21-46); MONOCYTES ABSOLUTE AUTO 0.69 K/mm3 (0.16-1.47); MONOCYTES PERCENT AUTO 8 % (4-13); Mean Corpuscular HGB 28.9 pg (26.0-34.0); Mean Corpuscular HGB Conc 33.3 g/dL (31.5-36.5); Mean Corpuscular Volume 87 fL (80-100); Mean Platelet Volume 12.5 fL (9.1-12.4); NEUTROPHILS ABSOLUTE AUTO 5.16 K/mm3 (1.96-9.15); NEUTROPHILS PERCENT AUTO 57 % (41-73); Platelet Count 166 K/mm3 (150-400); RDW Coefficient Variation 13.3 % (11.7-14.2); RDW Standard Deviation 42.5 fL (35.1-46.3); Red Blood Cell Count 4.64 M/mm3 (4.30-5.90)
[2020-08-03 20:00] LABS: Albumin, Blood 4.2 g/dL (3.4-5.0); Albumin/Globulin Ratio 1.2 (0.8-1.8); Bilirubin, Total 0.4 mg/dL (0.1-1.0); Bun/Creatinine Ratio 15.6 (12.0-20.0); Creatinine, Blood 1.67 mg/dL (0.60-1.20); Globulin, Blood 3.5 g/dL (2.2-4.0); Potassium, Blood 4.1 mmol/L (3.5-5.5); Total Protein, Blood 7.7 g/dL (6.4-8.2); Troponin I 0.016 ng/mL (0.000-0.040)
[2020-08-03] MEDS ORDERED: SPIR25 PO (23:24)
== END 2020-08-03 23:35 | disposition home or self-care (01) ==
LOC: ER 18:23
PROVIDERS: Emergency Medicine
DX: I11.0 Hypertensive heart disease with heart failure (principal); I50.9 Heart failure, unspecified; J44.9 Chronic obstructive pulmonary disease, unspecified; E78.00 Pure hypercholesterolemia, unspecified; Z88.5 Allergy status to narcotic agent; Z79.899 Other long term (current) drug therapy; Z79.82 Long term (current) use of aspirin
CPT/HCPCS: 36415; 71046; 80053; 83880; 84484; 85025; 93005; 93010; 99284-25

== ENCOUNTER 2020-10-03 13:04 | Emergency (ER) | payer MEDICARE, SELFPAY ==
[~2020-10-03] VITALS: Ht 180.3 cm; Wt 87.1 kg
[~2020-10-03 13:04] MED LIST changes: +SPIR25 PO
[2020-10-03 13:37] LABS: BASOPHILS ABSOLUTE AUTO 0.06 K/mm3 (0.00-0.23); BASOPHILS PERCENT AUTO 1 % (0-2); EOSINOPHILS ABSOLUTE AUTO 0.11 K/mm3 (0.00-0.68); EOSINOPHILS PERCENT AUTO 1 % (0-6); Hemoglobin 11.3 g/dL (13.5-17.5); IMMATURE GRAN ABSOLUTE AUTO 0.04 K/mm3 (0.00-0.10); IMMATURE GRAN PERCENT AUTO 1 % (0-1); LYMPHOCYTES ABSOLUTE AUTO 2.21 K/mm3 (0.84-5.20); LYMPHOCYTES PERCENT AUTO 29 % (21-46); MONOCYTES PERCENT AUTO 7 % (4-13); Mean Corpuscular HGB 28.8 pg (26.0-34.0); Mean Corpuscular HGB Conc 32.3 g/dL (31.5-36.5); Mean Corpuscular Volume 89 fL (80-100); NEUTROPHILS ABSOLUTE AUTO 4.81 K/mm3 (1.96-9.15); NEUTROPHILS PERCENT AUTO 62 % (41-73); Platelet Count 168 K/mm3 (150-400); RDW Coefficient Variation 14.7 % (11.7-14.2); Red Blood Cell Count 3.93 M/mm3 (4.30-5.90); White Blood Cell Count 7.73 K/mm3 (4.00-11.30)
[2020-10-03 13:57] LABS: Alanine Aminotransfer (ALT/SGP 24 U/L (12-78); Albumin/Globulin Ratio 1.1 (0.8-1.8); Alk Phos 71 U/L (50-136); Anion Gap 6 mmol/L (6-16); Aspartate Aminotrans (AST/SGOT 20 U/L (12-37); Bilirubin, Total 0.3 mg/dL (0.1-1.0); Blood Urea Nitrogen 19 mg/dL (8-24); Bun/Creatinine Ratio 17.3 (12.0-20.0); CO2, Blood 23 mmol/L (21-32); Calcium, Blood 8.9 mg/dL (8.5-10.1); Chloride, Blood 110 mmol/L (98-108); Globulin, Blood 3.6 g/dL (2.2-4.0); Glomerular Filtration Rate >60 (60-); Glucose, Blood 102 mg/dL (70-99); Potassium, Blood 4.5 mmol/L (3.5-5.5); Sodium, Blood 139 mmol/L (136-145); Total Protein, Blood 7.6 g/dL (6.4-8.2); Troponin I <0.015 ng/mL (0.000-0.040)
[2020-10-03] MEDS ORDERED: SPIRONOLACTONE50 MG PO (14:06)
[2020-10-03] MEDS ORDERED: TORSE20 PO ×2 (14:06→15:14)
== END 2020-10-03 15:21 | disposition home or self-care (01) ==
LOC: ER 13:04
PROVIDERS: Emergency Medicine
DX: I11.0 Hypertensive heart disease with heart failure (principal); I50.22 Chronic systolic (congestive) heart failure; J44.9 Chronic obstructive pulmonary disease, unspecified; E78.00 Pure hypercholesterolemia, unspecified; Z87.891 Personal history of nicotine dependence
CPT/HCPCS: 36415; 71045; 80053; 83880; 84484; 85025; 93005; 93010; 96374; 99284-25; A9270; J1940

== ENCOUNTER 2021-01-02 11:22 | Inpatient (IN) | payer MEDICARE ==
[~2021-01-02] VITALS: Ht 180.3 cm; Wt 83.5 kg
[~2021-01-02 11:22] MED LIST changes: +SPIRONOLACTONE50 MG PO
[2021-01-02] MEDS ORDERED: [UNRECOGNIZED DRUG - OTHER] PO (11:56)
[2021-01-02] MEDS ORDERED: Aspir 8181 MG PO (11:56)
[2021-01-02] MEDS ORDERED: ENTRESTO 24 MG1 EACH PO (11:57)
[2021-01-02] MEDS ORDERED: METO25ER PO (11:57)
[2021-01-02] MEDS ORDERED: SPIR50 PO (11:57)
[2021-01-02] MEDS ORDERED: PRAVASTATIN SOD40 MG PO (11:57)
[2021-01-02 12:11] LABS: BASOPHILS ABSOLUTE AUTO 0.06 K/mm3 (0.00-0.23); BASOPHILS PERCENT AUTO 1 % (0-2); EOSINOPHILS ABSOLUTE AUTO 0.14 K/mm3 (0.00-0.68); EOSINOPHILS PERCENT AUTO 2 % (0-6); Hematocrit 31.1 % (37.0-53.0); Hemoglobin 10.3 g/dL (13.5-17.5); IMMATURE GRAN ABSOLUTE AUTO 0.03 K/mm3 (0.00-0.10); IMMATURE GRAN PERCENT AUTO 0 % (0-1); LYMPHOCYTES ABSOLUTE AUTO 1.94 K/mm3 (0.84-5.20); LYMPHOCYTES PERCENT AUTO 23 % (21-46); MONOCYTES ABSOLUTE AUTO 0.53 K/mm3 (0.16-1.47); MONOCYTES PERCENT AUTO 6 % (4-13); Mean Corpuscular HGB 29.9 pg (26.0-34.0); Mean Corpuscular HGB Conc 33.1 g/dL (31.5-36.5); Mean Corpuscular Volume 90 fL (80-100); Mean Platelet Volume 12.4 fL (9.1-12.4); NEUTROPHILS ABSOLUTE AUTO 5.71 K/mm3 (1.96-9.15); NEUTROPHILS PERCENT AUTO 68 % (41-73); Platelet Count 154 K/mm3 (150-400); RDW Coefficient Variation 13.5 % (11.7-14.2); RDW Standard Deviation 44.8 fL (35.1-46.3); Red Blood Cell Count 3.44 M/mm3 (4.30-5.90); White Blood Cell Count 8.41 K/mm3 (4.00-11.30)
[2021-01-02 12:21] LABS: Alanine Aminotransfer (ALT/SGP 18 U/L (12-78); Albumin, Blood 3.7 g/dL (3.4-5.0); Albumin/Globulin Ratio 1.2 (0.8-1.8); Alk Phos 67 U/L (50-136); Anion Gap 8 mmol/L (6-16); Aspartate Aminotrans (AST/SGOT 15 U/L (12-37); Bilirubin, Total 0.5 mg/dL (0.1-1.0); Blood Urea Nitrogen 18 mg/dL (8-24); Bun/Creatinine Ratio 14.2 (12.0-20.0); CO2, Blood 26 mmol/L (21-32); Calcium, Blood 8.6 mg/dL (8.5-10.1); Chloride, Blood 107 mmol/L (98-108); Creatinine, Blood 1.27 mg/dL (0.60-1.20); Globulin, Blood 3.2 g/dL (2.2-4.0); Glomerular Filtration Rate 56 (60-); Glucose, Blood 98 mg/dL (70-99); Potassium, Blood 3.7 mmol/L (3.5-5.5); Sodium, Blood 141 mmol/L (136-145); Total Protein, Blood 6.9 g/dL (6.4-8.2); Troponin I <0.015 ng/mL (0.000-0.040)
[2021-01-02] MEDS ORDERED: TORSEMIDE 100 MG PO (15:06)
[2021-01-02 18:51] LABS: SARS-Cov-2 (COVID-19) PCR, MMC NEGATIVE (NEGATIVE)
--- NOTE | 2021-01-02 19:12 | NUR ---
SHIFT SUMMARY PT IS STABLE. VITAL SIGNS ARE STABLE WELL. PT IS ALERT AND ORIENTED X 4. REPORT WAS GIVEN TO INSIGHT DIRECTOR NURSE.
--- NOTE | 2021-01-02 19:16 | NUR ---
SHIFT SUMMARY PT CONTINUES TO SHOW GOOD PROGRESS. SHE HAS BEEN PRONING EVERYDAY AFTER HER MEALS. PT STARTED PHYSICAL THERAPY TODAY AND SHOWS GOOD PROGRESS. VITAL SIGNS REMAIN STABLE. REPORT HAS BEEN GIVEN TO PRINTING SPECIALIST NURSE
--- NOTE | 2021-01-03 01:08 | NUR ---
PATIENT'S BLOOD PRESSURES HAVE BEEN IN THE 80'S SYSTOLIC WITH A MAP ABOVE 60. BASED ON THE PATIENT'S HISTORY RN TALKED TO THE CHARGE NURSE ABOUT HER CONCERNS. PATIENT WAS SYMPTOMATIC. HE ALSO RECEIVED LASIX AT NIGHT AND HAD A GOOD URINE OUTPUT. CHARGE NURSE STATED SINCE PATIENT WAS NOT SYMPTOMATIC RN SHOULD CONTINUE TO MONITOR AND NO NEED TO CALL MD. WILL CONTINUE TO MONITOR.
[2021-01-03 04:21] LABS: BASOPHILS ABSOLUTE AUTO 0.07 K/mm3 (0.00-0.23); BASOPHILS PERCENT AUTO 1 % (0-2); EOSINOPHILS ABSOLUTE AUTO 0.13 K/mm3 (0.00-0.68); EOSINOPHILS PERCENT AUTO 2 % (0-6); Hematocrit 29.2 % (37.0-53.0); Hemoglobin 9.6 g/dL (13.5-17.5); IMMATURE GRAN ABSOLUTE AUTO 0.02 K/mm3 (0.00-0.10); IMMATURE GRAN PERCENT AUTO 0 % (0-1); LYMPHOCYTES ABSOLUTE AUTO 2.37 K/mm3 (0.84-5.20); LYMPHOCYTES PERCENT AUTO 27 % (21-46); MONOCYTES ABSOLUTE AUTO 0.46 K/mm3 (0.16-1.47); MONOCYTES PERCENT AUTO 5 % (4-13); Mean Corpuscular HGB 29.5 pg (26.0-34.0); Mean Corpuscular HGB Conc 32.9 g/dL (31.5-36.5); Mean Corpuscular Volume 90 fL (80-100); NEUTROPHILS ABSOLUTE AUTO 5.64 K/mm3 (1.96-9.15); NEUTROPHILS PERCENT AUTO 65 % (41-73); Platelet Count 141 K/mm3 (150-400); RDW Coefficient Variation 13.5 % (11.7-14.2); RDW Standard Deviation 44.7 fL (35.1-46.3); Red Blood Cell Count 3.25 M/mm3 (4.30-5.90); White Blood Cell Count 8.69 K/mm3 (4.00-11.30)
[2021-01-03 04:38] LABS: Albumin, Blood 3.5 g/dL (3.4-5.0); Albumin/Globulin Ratio 1.2 (0.8-1.8); Bilirubin, Total 0.5 mg/dL (0.1-1.0); Bun/Creatinine Ratio 14.3 (12.0-20.0); Creatinine, Blood 1.19 mg/dL (0.60-1.20); Potassium, Blood 3.7 mmol/L (3.5-5.5); Total Protein, Blood 6.5 g/dL (6.4-8.2)
--- NOTE | 2021-01-03 05:36 | NUR ---
SHIFT SUMMARY PATIENT IS RESTING COMFORTABLY ON BED. BED IS IN LOW POSITION. VITALS HAVE BEEN STABLE EXCEPT BLOOD PRESSURE. CHARGE NURSE WAS INFORMED SEE PREVIOUS NOTES. PATIENT IS ON 1L NC SATURATING ABOVE 95%. NO COMPLAINTS OF PAIN. BED IS IN LOW POSITION. CALL LIGHT IS IN REACH. WILL CONTINUE TO MONITOR.
--- NOTE | 2021-01-03 17:47 | NUR ---
SHIFT SUMMARY PT IS AOX4 AND PLEASANT. PT DENIES PAIN, N/V. VSS. PT APPETITE IS GOOD. BLOOD PRESSURES STABLE THROUGH SHIFT. PT IS SBA WITH BATHROOM PRIVILEDGES. TELE SHOWS PROLONGED QT INTERVAL OF 0.51-0.53. PROVIDER IS AWARE AND EXTERNAL DEFIBRILLATOR VEST IS ON PT. PT IS ON RA OR 2 L TO ASSIST PT WITH SOB. PT IS IN BED, CALL LIGHT IN REACH, LOW POSITION.
[2021-01-04 04:30] LABS: Anion Gap 5 mmol/L (6-16); Blood Urea Nitrogen 20 mg/dL (8-24); Bun/Creatinine Ratio 17.2 (12.0-20.0); CO2, Blood 28 mmol/L (21-32); Calcium, Blood 8.5 mg/dL (8.5-10.1); Chloride, Blood 105 mmol/L (98-108); Creatinine, Blood 1.16 mg/dL (0.60-1.20); Glomerular Filtration Rate >60 (60-); Glucose, Blood 98 mg/dL (70-99); Magnesium, Blood 2.7 mg/dL (1.6-2.4); Potassium, Blood 3.8 mmol/L (3.5-5.5); Sodium, Blood 138 mmol/L (136-145)
--- NOTE | 2021-01-04 06:18 | NUR ---
SHIFT SUMMARY PT IS AOX4. ALERT, CALM AND APPROPRIATE WITH STAFF. DENIES N/V, AND PAIN. VSS. PT ON TELE NSR WITH PROLONGED QT INTERVAL; MD AWARE. GOOD APPETITE WITH A 1,000FR/DAY. SKIN DRY, WARM TO TOUCH. ON 1L NC O2 ABOVE 95%. NO COMPLICATIONS OR ACUTE CHANGES T/O THE NOC. EXTERNAL DEFIBRILLATOR VEST IS ON PT (PER MD LEAVE ON PT). CALL LIGHT IN REACH AND BED IN LOW POSITION.
--- NOTE | 2021-01-04 18:34 | NUR ---
SHIFT SUMMARY PT REMAINS STABLE WITH SLIGHTLY LOW BLOOD PRESSURES. DR. GEE HAS MADE SOME MODIFICATION TO PT'S MED IN HOPES TO DECREASE PT'S HYPOTENSIVE BLOOD PRESSURES. PT STATES THAT HE FEELS SLIGHTLY BETTER THAN HE DID YESTERDAY. NURSE WILL GIVE REPORT TO ODD JOB WORKER.
--- NOTE | 2021-01-05 06:27 | NUR ---
SHIFT SUMMARY PT CONTINUES TO BE A/O X4, VSS THOUGH BP HAS REMAINED SOFT, FLUID RESTRICTION IN PLACE, NO ACUTE EVENTS THIS SHIFT. CALL LIGHT IN REACH, WILL CTM AND REPORT TO DAY RN.
--- NOTE | 2021-01-05 14:13 | NUR ---
Met pt. sitting up in a chair and gthe therapist in the room attending to his needs Pt. is fine encouraged himmand offered prayers
[2021-01-05] MEDS ORDERED: [UNRECOGNIZED DRUG - OTHER] PO (17:49)
[2021-01-05] MEDS ORDERED: TORSE20 PO (17:50)
--- NOTE | 2021-01-05 18:39 | NUR ---
DISCHARGE PT HAS BEEN SAFELY DISCHARGED. PT WAS ESCORTED BY PCT WHILE SEATING IN A WHEELCHAIRTO MEET AT THE ER ENTRANCE. TELEMETRY BOX AND LEFT AC IV WAS REMOVED. PT RECIEVED OXYGEN DELIVERY HOME SERVICES.
== END 2021-01-05 18:40 | disposition home or self-care (01) | DRG 293 ==
LOC: ER 11:22 → SURS 16:24
PROVIDERS: Physician Assistant; Student in an Organized Health Care Education/Training Program; ADMIT Hospitalist
DX: I11.0 Hypertensive heart disease with heart failure (principal); Z20.822 Contact with and (suspected) exposure to COVID-19; E78.5 Hyperlipidemia, unspecified; I95.9 Hypotension, unspecified; I35.1 Nonrheumatic aortic (valve) insufficiency; I25.10 Atherosclerotic heart disease of native coronary artery without angina pectoris; E83.41 Hypermagnesemia; I50.23 Acute on chronic systolic (congestive) heart failure; I42.8 Other cardiomyopathies; J44.9 Chronic obstructive pulmonary disease, unspecified; E78.00 Pure hypercholesterolemia, unspecified; M48.061 Spinal stenosis, lumbar region without neurogenic claudication; Z90.79 Acquired absence of other genital organ(s); Z98.890 Other specified postprocedural states; Z87.891 Personal history of nicotine dependence; Z88.8 Allergy status to other drugs, medicaments and biological substances; Z79.82 Long term (current) use of aspirin; Z79.899 Other long term (current) drug therapy
CPT/HCPCS: 36415; 71045; 80048; 80053; 83690; 83735; 83880; 84443; 84484; 85025; 93005; 93010; 94640; 94762; 96365; 96375; 97110; 97161; 97165; 97530; 97535; 99285-25; A9270; C8929; J1650; J1940; J3480; J7030; Q9957; U0004

== ENCOUNTER 2021-01-31 23:53 | Emergency (ER) | payer MEDICARE ==
[~2021-01-31] VITALS: Ht 180.3 cm; Wt 78.5 kg
[~2021-01-31 23:53] MED LIST changes: +Aspir 8181 MG PO; +SPIR50 PO; +TORSEMIDE 100 MG PO; +[UNRECOGNIZED DRUG - OTHER] PO
[2021-02-01] MEDS ORDERED: DOCU100 PO (00:52)
== END 2021-02-01 01:10 | disposition home or self-care (01) ==
LOC: ER 23:53
DX: K59.00 Constipation, unspecified (principal); I50.9 Heart failure, unspecified; Z87.891 Personal history of nicotine dependence; Z79.899 Other long term (current) drug therapy; Z79.82 Long term (current) use of aspirin
CPT/HCPCS: 99283; A9270

== ENCOUNTER 2021-03-20 15:36 | Emergency (ER) | payer MEDICARE ==
[~2021-03-20] VITALS: Ht 180.3 cm; Wt 80.7 kg
[~2021-03-20 15:36] MED LIST changes: +DOCU100 PO
[2021-03-20 16:10] LABS: Hematocrit 30.5 % (37.0-53.0); Hemoglobin 9.6 g/dL (13.5-17.5); Mean Corpuscular HGB 27.7 pg (26.0-34.0); Mean Corpuscular HGB Conc 31.5 g/dL (31.5-36.5); Mean Corpuscular Volume 88 fL (80-100); Mean Platelet Volume 12.4 fL (9.1-12.4); Platelet Count 182 K/mm3 (150-400); RDW Coefficient Variation 14.2 % (11.7-14.2); RDW Standard Deviation 44.8 fL (35.1-46.3); Red Blood Cell Count 3.47 M/mm3 (4.30-5.90)
[2021-03-20 16:15] LABS: White Blood Cell Count 5.86 K/mm3 (4.00-11.30)
[2021-03-20 16:32] LABS: Alanine Aminotransfer (ALT/SGP 15 U/L (12-78); Albumin, Blood 3.3 g/dL (3.4-5.0); Alk Phos 93 U/L (50-136); Anion Gap 6 mmol/L (6-16); Aspartate Aminotrans (AST/SGOT 18 U/L (12-37); BASOPHILS PERCENT MAN 0 % (0-2); Bilirubin, Total 0.3 mg/dL (0.1-1.0); Blood Urea Nitrogen 11 mg/dL (8-24); Bun/Creatinine Ratio 10.2 (12.0-20.0); CO2, Blood 28 mmol/L (21-32); Calcium, Blood 8.7 mg/dL (8.5-10.1); Chloride, Blood 107 mmol/L (98-108); Creatinine, Blood 1.08 mg/dL (0.60-1.20); EOSINOPHILS ABSOLUTE MAN 0.23 K/mm3 (0.00-0.68); EOSINOPHILS PERCENT MAN 4 % (0-6); Globulin, Blood 3.4 g/dL (2.2-4.0); Glomerular Filtration Rate >60 (60-); Glucose, Blood 116 mg/dL (70-99); LYMPHOCYTES ABSOLUTE MAN 2.22 K/mm3 (0.84-5.20); LYMPHOCYTES PERCENT MAN 38 % (21-46); MONOCYTES ABSOLUTE MAN 0.17 K/mm3 (0.16-1.47); MONOCYTES PERCENT MAN 3 % (4-13); NEUTROPHILS ABSOLUTE MAN 3.22 K/mm3 (1.96-9.15); Potassium, Blood 3.7 mmol/L (3.5-5.5); SEG NEUTROPHILS PERCENT MAN 55 % (41-73); Sodium, Blood 141 mmol/L (136-145); TOTAL CELLS COUNTED 100; Total Protein, Blood 6.7 g/dL (6.4-8.2); Troponin I <0.015 ng/mL (0.000-0.040)
[2021-03-20] MEDS ORDERED: Ativan1 MG PO (19:10)
[2021-03-20] MEDS ORDERED: POTCHL20ER PO (19:10)
[2021-03-20] MEDS ORDERED: OXYC10ER PO (19:11)
[2021-03-20] MEDS ORDERED: MORP20L PO (19:16)
[2021-03-20 19:50] LABS: Influenza A, PCR NEGATIVE (NEGATIVE); Influenza B, PCR NEGATIVE (NEGATIVE); Resp Syncytial Virus, PCR NEGATIVE (NEGATIVE); SARS-Cov-2 (COVID-19) PCR, MMC NEGATIVE (NEGATIVE)
[2021-03-20] MEDS ORDERED: Lasix40 MG PO (21:15)
== END 2021-03-20 21:28 | disposition home or self-care (01) ==
LOC: ER 15:36
PROVIDERS: Emergency Medicine; Physician Assistant
DX: I11.0 Hypertensive heart disease with heart failure (principal); I50.9 Heart failure, unspecified; Z88.6 Allergy status to analgesic agent; Z88.8 Allergy status to other drugs, medicaments and biological substances; Z79.899 Other long term (current) drug therapy; Z79.82 Long term (current) use of aspirin; J44.9 Chronic obstructive pulmonary disease, unspecified; E78.00 Pure hypercholesterolemia, unspecified
CPT/HCPCS: 0241U; 36415; 71046; 80053; 83690; 83880; 84484; 85025; 93005; 93010; 96374; 99285-25; A9270; J1940

== ENCOUNTER 2021-04-30 12:01 | Emergency (ER) | payer MEDICARE ==
[~2021-04-30] VITALS: Ht 180.3 cm; Wt 84.8 kg
[~2021-04-30 12:01] MED LIST changes: +Ativan1 MG PO; +Lasix40 MG PO; +MORP20L PO; +OXYC10ER PO
[2021-04-30 13:09] LABS: BASOPHILS ABSOLUTE AUTO 0.06 K/mm3 (0.00-0.23); BASOPHILS PERCENT AUTO 1 % (0-2); EOSINOPHILS PERCENT AUTO 3 % (0-6); Hematocrit 31.9 % (37.0-53.0); Hemoglobin 9.9 g/dL (13.5-17.5); IMMATURE GRAN ABSOLUTE AUTO 0.02 K/mm3 (0.00-0.10); IMMATURE GRAN PERCENT AUTO 0 % (0-1); LYMPHOCYTES ABSOLUTE AUTO 1.89 K/mm3 (0.84-5.20); LYMPHOCYTES PERCENT AUTO 24 % (21-46); MONOCYTES ABSOLUTE AUTO 0.52 K/mm3 (0.16-1.47); MONOCYTES PERCENT AUTO 7 % (4-13); Mean Corpuscular Volume 84 fL (80-100); Mean Platelet Volume 12.1 fL (9.1-12.4); NEUTROPHILS ABSOLUTE AUTO 5.28 K/mm3 (1.96-9.15); NEUTROPHILS PERCENT AUTO 66 % (41-73); Platelet Count 156 K/mm3 (150-400); RDW Coefficient Variation 15.7 % (11.7-14.2); RDW Standard Deviation 47.8 fL (35.1-46.3); Red Blood Cell Count 3.81 M/mm3 (4.30-5.90); White Blood Cell Count 7.97 K/mm3 (4.00-11.30)
[2021-04-30 13:18] LABS: Alanine Aminotransfer (ALT/SGP 20 U/L (12-78); Albumin, Blood 3.5 g/dL (3.4-5.0); Albumin/Globulin Ratio 1.1 (0.8-1.8); Alk Phos 94 U/L (50-136); Anion Gap 7 mmol/L (6-16); Aspartate Aminotrans (AST/SGOT 18 U/L (12-37); Bilirubin, Total 0.4 mg/dL (0.1-1.0); Blood Urea Nitrogen 13 mg/dL (8-24); CO2, Blood 30 mmol/L (21-32); Chloride, Blood 105 mmol/L (98-108); Globulin, Blood 3.2 g/dL (2.2-4.0); Glomerular Filtration Rate >60 (60-); Glucose, Blood 87 mg/dL (70-99); Potassium, Blood 4.2 mmol/L (3.5-5.5); Sodium, Blood 142 mmol/L (136-145); Total Protein, Blood 6.7 g/dL (6.4-8.2); Troponin I <0.015 ng/mL (0.000-0.040)
[2021-04-30] MEDS ORDERED: PRED20 PO (16:05)
== END 2021-04-30 16:14 | disposition home or self-care (01) ==
LOC: ER 12:01
PROVIDERS: Physician Assistant
DX: J44.1 Chronic obstructive pulmonary disease with (acute) exacerbation (principal); I11.0 Hypertensive heart disease with heart failure; I50.9 Heart failure, unspecified; Z99.81 Dependence on supplemental oxygen; Z88.6 Allergy status to analgesic agent; Z91.018 Allergy to other foods; Z79.899 Other long term (current) drug therapy
CPT/HCPCS: 36415; 71046; 80053; 83880; 84484; 85025; 93005; 93010; 94640

== ENCOUNTER → 2024-04-29 | Outpatient (CLI) | payer MEDICARE ==
[~2024-04-29] MED LIST changes: +CEFD300 PO; +PRED20 PO
[2024-04-29 17:23] LABS: Hematocrit 33.8 % (37.0-53.0); Hemoglobin 11.5 g/dL (13.5-17.5); Mean Corpuscular HGB 29.6 pg (26.0-34.0); Mean Corpuscular Volume 87 fL (80-100); Mean Platelet Volume 12.4 fL (9.1-12.4); Platelet Count 186 K/mm3 (150-400); RDW Coefficient Variation 14.1 % (11.7-14.2); Red Blood Cell Count 3.88 M/mm3 (4.30-5.90); White Blood Cell Count 8.23 K/mm3 (4.00-11.30)
[2024-04-29 18:04] LABS: Alanine Aminotransfer (ALT/SGP 23 U/L (12-78); Albumin, Blood 3.6 g/dL (3.4-5.0); Alk Phos 101 U/L (50-136); Anion Gap 9 mmol/L (3-11); Aspartate Aminotrans (AST/SGOT 19 U/L (12-37); Bilirubin, Total 0.3 mg/dL (0.1-1.0); Blood Urea Nitrogen 11 mg/dL (8-24); Bun/Creatinine Ratio 10.9 (12.0-20.0); CHOL/HDL RATIO 4.3; CO2, Blood 27 mmol/L (21-32); Calcium, Blood 9.1 mg/dL (8.5-10.1); Chloride, Blood 105 mmol/L (98-108); Cholesterol 194 mg/dL (50-200); Creatinine, Blood 1.01 mg/dL (0.60-1.20); Free Thyroxine 0.96 ng/dL (0.70-1.60); Globulin, Blood 3.5 g/dL (2.2-4.0); Glomerular Filtration Rate 77 (60-); Glucose, Blood 102 mg/dL (70-99); HDL Cholesterol 45 mg/dL (>39); Iron Serum 44 ug/dL (65-175); LDL/HDL RATIO 2.5; Low Density Lipoprotein Chol 113 mg/dL (0-110); Percent Saturation 15.8 % (20.0-50.0); Potassium, Blood 4.4 mmol/L (3.5-5.5); Sodium, Blood 137 mmol/L (136-145); Thyroid Stimulating Hormone 0.817 uIU/mL (0.360-4.800); Total Iron Binding Capacity 278 ug/dL (250-450); Total Protein, Blood 7.1 g/dL (6.4-8.2); Triglycerides 178 mg/dL (30-160); Very Low Density Lipoprot Chol 35 mg/dL (6-32)
== END | disposition home or self-care (01) ==
LOC: LAB SHORT 11:05 → LAB 11:05
PROVIDERS: Nurse Practitioner Family
DX: I50.40 Unspecified combined systolic (congestive) and diastolic (congestive) heart failure (principal); I25.10 Atherosclerotic heart disease of native coronary artery without angina pectoris; R53.83 Other fatigue; I35.1 Nonrheumatic aortic (valve) insufficiency; I36.1 Nonrheumatic tricuspid (valve) insufficiency
CPT/HCPCS: 80053; 80061; 83540; 83550; 84439; 84443; 85027

== ENCOUNTER 2024-05-29 06:52 | Day surgery (SDC) | payer MEDICARE ==
[~2024-05-29] VITALS: Ht 180.3 cm; Wt 73.3 kg
[~2024-05-29 06:52] MED LIST changes: +ATOR40TA PO; +Acetaminophen650 M1 PO; +ENTRESTO 24 MG1 EAC2 PO; +ESCI10 PO; +JARDIANCE10 MG PO; +Lactated Ringer's 1,000 ML IV ONE; +Lactated Ringer's 1,000 ML IV SCH; +Micro-K8 MEQ PO; +TRAZ50 PO
[2024-05-29 08:22] VITALS: BP 130/62
[2024-05-29] MEDS ORDERED: propofoL 40 ML IV ONE (08:44)
[2024-05-29] MEDS ORDERED: Benzocaine Oral Spray 0.5ML UD ONE (08:47)
--- NOTE | 2024-05-29 09:00 | NUR ---
05/29/24 0900 Damaris Mccoy [id number]-MONITOR INTACT WITH CONTINUOUS PULSE OXIMETRY, CONTINUOUS END TITAL CO2, AND INTERMITTENT BLOOD PRESSURE.3-LEAD EKG REVIEWED WITH PHYSICIAN PRIOR TO START OF PROCEDURE.O2 VIA POM INTACT THROUGHOUT SEDATION/PROCEDURE.HURRICAINE SPRAY TO OROPHARYX.Bite Block Placed.DR ROCK PROVIDING ANESTHESIA-SEE ANESTHESIA RECORD.
[2024-05-29 09:38] VITALS: BP 109/50
--- NOTE | 2024-05-29 09:48 | NUR ---
Discharge instructions reviewed with patient. Patient verbalizes understanding. Copy given to patient to take home. Patient States Post-Procedure ride home has been arranged. Discharged via wheelchair to private car for ride home.
== END 2024-05-29 10:05 | disposition home or self-care (01) ==
LOC: ORSCMMR 06:52 → ORD 08:30 → ORSCMMR 10:05
PROVIDERS: Internal Medicine Gastroenterology
PROC: 0DB98ZX Excision of Duodenum, Via Natural or Artificial Opening Endoscopic, Diagnostic (ICD-10-PCS; principal; 2024-05-29 08:30)
PROC: 0DJD8ZZ Inspection of Lower Intestinal Tract, Via Natural or Artificial Opening Endoscopic (ICD-10-PCS; principal; 2024-05-29 08:30)
PROC: 0DB78ZX Excision of Stomach, Pylorus, Via Natural or Artificial Opening Endoscopic, Diagnostic (ICD-10-PCS; principal; 2024-05-29 08:30)
DX: D50.9 Iron deficiency anemia, unspecified (principal); K29.71 Gastritis, unspecified, with bleeding; K29.80 Duodenitis without bleeding; A63.0 Anogenital (venereal) warts; E78.00 Pure hypercholesterolemia, unspecified; I10 Essential (primary) hypertension; E03.9 Hypothyroidism, unspecified; I42.8 Other cardiomyopathies; Z95.0 Presence of cardiac pacemaker; Z79.899 Other long term (current) drug therapy; F17.210 Nicotine dependence, cigarettes, uncomplicated
CPT/HCPCS: 88305; 88342; A9270; J2704; J7120

== ENCOUNTER 2024-07-22 12:32 | Emergency (ER) | payer MEDICARE ==
[~2024-07-22] VITALS: Ht 180.3 cm; Wt 77.1 kg
[~2024-07-22 12:32] MED LIST changes: -Lactated Ringer's 1,000 ML IV ONE; -Lactated Ringer's 1,000 ML IV SCH
[2024-07-22 13:14] LABS: BASOPHILS ABSOLUTE AUTO 0.08 K/mm3 (0.00-0.23); BASOPHILS PERCENT AUTO 1 % (0-2); EOSINOPHILS ABSOLUTE AUTO 0.17 K/mm3 (0.00-0.68); EOSINOPHILS PERCENT AUTO 2 % (0-6); Hematocrit 33.1 % (37.0-53.0); Hemoglobin 11.2 g/dL (13.5-17.5); IMMATURE GRAN ABSOLUTE AUTO 0.04 K/mm3 (0.00-0.10); IMMATURE GRAN PERCENT AUTO 1 % (0-1); LYMPHOCYTES ABSOLUTE AUTO 2.68 K/mm3 (0.84-5.20); LYMPHOCYTES PERCENT AUTO 32 % (21-46); MONOCYTES ABSOLUTE AUTO 0.46 K/mm3 (0.16-1.47); MONOCYTES PERCENT AUTO 6 % (4-13); Mean Corpuscular HGB 28.6 pg (26.0-34.0); Mean Corpuscular HGB Conc 33.8 g/dL (31.5-36.5); Mean Corpuscular Volume 84 fL (80-100); Mean Platelet Volume 11.3 fL (9.1-12.4); NEUTROPHILS ABSOLUTE AUTO 4.96 K/mm3 (1.96-9.15); NEUTROPHILS PERCENT AUTO 59 % (41-73); Platelet Count 186 K/mm3 (150-400); RDW Standard Deviation 46.4 fL (35.1-46.3); Red Blood Cell Count 3.92 M/mm3 (4.30-5.90); White Blood Cell Count 8.39 K/mm3 (4.00-11.30)
[2024-07-22 13:34] LABS: Albumin, Blood 3.8 g/dL (3.4-5.0); Albumin/Globulin Ratio 1.3 (0.8-1.8); Bilirubin, Total 0.2 mg/dL (0.1-1.0); Bun/Creatinine Ratio 11.1 (12.0-20.0); Calcium, Blood 8.5 mg/dL (8.5-10.1); Creatinine, Blood 1.08 mg/dL (0.60-1.20); Potassium, Blood 4.1 mmol/L (3.5-5.5); Total Protein, Blood 6.8 g/dL (6.4-8.2)
[2024-07-22 14:38] LABS: Source, Urine Clean Catch
[2024-07-22 14:54] LABS: Appearance, Urine Turbid (Clear); Bilirubin, Urine Neg (Neg); Blood, Urine 5+ (Neg); Color, Urine Red (P-Yellow); Glucose Qualitative, Urine Neg (Neg); Ketones, Urine 1+ (Neg); Leukocyte Esterase, Urine Neg (Neg); Nitrite, Urine Neg (Neg); Protein, Urine 4+ (Neg); Specific Gravity, Urine 1.015 (1.003-1.022); Urobilinogen, Urine NORM (Normal); pH, Urine 6.5 (5.0-8.0)
[2024-07-22 15:21] LABS: Bacteria Mod /hpf; RBC Cast 0-2 /lpf (0); Red Blood Cells, Urine TNTC /hpf (0-2); Squamous Epithelial Cells Rare /hpf (Few)
[2024-07-22 16:00] VITALS: BP 114/60
== END 2024-07-22 16:00 | disposition home or self-care (01) ==
LOC: ER 12:32
PROVIDERS: Physician Assistant
DX: R31.0 Gross hematuria (principal); Z79.899 Other long term (current) drug therapy; Z88.6 Allergy status to analgesic agent; Z88.8 Allergy status to other drugs, medicaments and biological substances
CPT/HCPCS: 80053; 81001; 83690; 85025; 87086; 99284-25

== ENCOUNTER → 2024-07-29 | Outpatient (CLI) | payer MEDICARE | LOC: LAB SHORT 10:50 → LAB 10:50 | PROVIDERS: Nurse Practitioner Family | DX: Z12.5 Encounter for screening for malignant neoplasm of prostate (principal) | CPT/HCPCS: G0103 ==

== ENCOUNTER → 2024-11-07 | Outpatient (CLI) | payer MEDICARE | LOC: LAB SHORT 15:04 → LAB 15:04 | DX: R31.1 Benign essential microscopic hematuria (principal) | CPT/HCPCS: 87086 ==

== ENCOUNTER → 2025-01-14 | Outpatient (CLI) | payer MEDICARE ==
[2025-01-16 12:24] LABS: Stool Occult Bld Immuno 1 Negative (NEGATIVE)
== END ==
LOC: LAB SHORT 22:15 → LAB 22:15
PROVIDERS: Family Medicine
DX: K21.9 Gastro-esophageal reflux disease without esophagitis (principal); K29.70 Gastritis, unspecified, without bleeding
CPT/HCPCS: 82274; 87338

== ENCOUNTER → 2025-02-25 | Outpatient (CLI) | payer MEDICARE ==
[2025-02-25 19:38] LABS: BASOPHILS ABSOLUTE AUTO 0.07 K/mm3 (0.00-0.23); BASOPHILS PERCENT AUTO 1 % (0-2); EOSINOPHILS ABSOLUTE AUTO 0.08 K/mm3 (0.00-0.68); EOSINOPHILS PERCENT AUTO 1 % (0-6); Hematocrit 40.9 % (37.0-53.0); Hemoglobin 13.5 g/dL (13.5-17.5); IMMATURE GRAN ABSOLUTE AUTO 0.02 K/mm3 (0.00-0.10); IMMATURE GRAN PERCENT AUTO 0 % (0-1); LYMPHOCYTES ABSOLUTE AUTO 1.42 K/mm3 (0.84-5.20); LYMPHOCYTES PERCENT AUTO 17 % (21-46); MONOCYTES ABSOLUTE AUTO 0.38 K/mm3 (0.16-1.47); MONOCYTES PERCENT AUTO 5 % (4-13); Mean Corpuscular HGB Conc 33.0 g/dL (31.5-36.5); Mean Corpuscular Volume 87 fL (80-100); NEUTROPHILS ABSOLUTE AUTO 6.31 K/mm3 (1.96-9.15); NEUTROPHILS PERCENT AUTO 76 % (41-73); NRBC ABSOLUTE 0.00 K/mm3 (0.00-0.02); NRBC Auto 0.0 /100 WBC (0.0-0.2); Platelet Count 176 K/mm3 (150-400); RDW Coefficient Variation 14.5 % (11.7-14.2); RDW Standard Deviation 45.9 fL (35.1-46.3)
[2025-02-25 21:04] LABS: Alanine Aminotransfer (ALT/SGP 99.0 U/L (12-78); Albumin, Blood 4.2 g/dL (3.4-5.0); Albumin/Globulin Ratio 1.4 (0.8-1.8); Anion Gap 8.0 mmol/L (3-11); Aspartate Aminotrans (AST/SGOT 54.0 U/L (12-37); Bilirubin, Total 0.4 mg/dL (0.1-1.0); Blood Urea Nitrogen 13.0 mg/dL (8-24); CO2, Blood 29.0 mmol/L (21-32); Calcium, Blood 9.2 mg/dL (8.5-10.1); Chloride, Blood 102.0 mmol/L (98-108); Creatinine, Blood 1.11 mg/dL (0.60-1.20); Ferritin, Serum 141.0 ng/mL (26-388); Globulin, Blood 3.1 g/dL (2.2-4.0); Glucose, Blood 91.0 mg/dL (70-99); Potassium, Blood 3.9 mmol/L (3.5-5.5); Sodium, Blood 135.0 mmol/L (136-145); Total Iron Binding Capacity 322.0 ug/dL (250-450); Total Protein, Blood 7.3 g/dL (6.4-8.2)
== END ==
LOC: LAB 17:29 → LAB SHORT 17:29
PROVIDERS: Family Medicine
DX: K29.70 Gastritis, unspecified, without bleeding (principal)
CPT/HCPCS: 80053; 82728; 83540; 83550; 85025

== ENCOUNTER 2025-03-29 18:14 | Emergency (ER) | payer MEDICARE ==
[~2025-03-29] VITALS: Ht 180.3 cm; Wt 77.1 kg
[2025-03-29] MEDS ORDERED: Ondansetron HCl 2 MG / ML 2ML Vial IV ONE (18:35)
[2025-03-29 18:56] LABS: BASOPHILS ABSOLUTE AUTO 0.10 K/mm3 (0.00-0.23); BASOPHILS PERCENT AUTO 1 % (0-2); EOSINOPHILS ABSOLUTE AUTO 0.10 K/mm3 (0.00-0.68); EOSINOPHILS PERCENT AUTO 1 % (0-6); Hematocrit 35.1 % (37.0-53.0); Hemoglobin 11.7 g/dL (13.5-17.5); IMMATURE GRAN ABSOLUTE AUTO 0.09 K/mm3 (0.00-0.10); IMMATURE GRAN PERCENT AUTO 1 % (0-1); LYMPHOCYTES ABSOLUTE AUTO 1.86 K/mm3 (0.84-5.20); LYMPHOCYTES PERCENT AUTO 15 % (21-46); MONOCYTES ABSOLUTE AUTO 0.68 K/mm3 (0.16-1.47); MONOCYTES PERCENT AUTO 5 % (4-13); Mean Corpuscular HGB Conc 33.3 g/dL (31.5-36.5); Mean Corpuscular Volume 85 fL (80-100); NEUTROPHILS ABSOLUTE AUTO 9.82 K/mm3 (1.96-9.15); NEUTROPHILS PERCENT AUTO 78 % (41-73); NRBC ABSOLUTE 0.00 K/mm3 (0.00-0.02); NRBC Auto 0.0 /100 WBC (0.0-0.2); Platelet Count 150 K/mm3 (150-400); RDW Coefficient Variation 14.6 % (11.7-14.2); RDW Standard Deviation 45.2 fL (35.1-46.3)
[2025-03-29 19:17] LABS: Alanine Aminotransfer (ALT/SGP 114.0 U/L (12-78); Albumin, Blood 3.4 g/dL (3.4-5.0); Albumin/Globulin Ratio 1.3 (0.8-1.8); Anion Gap 7.0 mmol/L (3-11); Aspartate Aminotrans (AST/SGOT 125.0 U/L (12-37); Bilirubin, Total 0.5 mg/dL (0.1-1.0); Blood Urea Nitrogen 16.0 mg/dL (8-24); CO2, Blood 27.0 mmol/L (21-32); Calcium, Blood 8.3 mg/dL (8.5-10.1); Chloride, Blood 107.0 mmol/L (98-108); Creatinine, Blood 1.0 mg/dL (0.60-1.20); Globulin, Blood 2.6 g/dL (2.2-4.0); Glucose, Blood 127.0 mg/dL (70-99); Magnesium, Blood 2.0 mg/dL (1.6-2.4); Potassium, Blood 3.2 mmol/L (3.5-5.5); Sodium, Blood 138.0 mmol/L (136-145); Total Protein, Blood 6.0 g/dL (6.4-8.2)
[2025-03-29 19:21] LABS: Source, Urine Clean Catch
[2025-03-29 19:24] LABS: Bilirubin, Urine Neg (Neg); Color, Urine Yellow (P-Yellow); Glucose Qualitative, Urine 4+ (Neg); Ketones, Urine Neg (Neg); Leukocyte Esterase, Urine 1+ (Neg); Protein, Urine 3+ (Neg); Specific Gravity, Urine 1.015 (1.003-1.022); Urobilinogen, Urine NORM (Normal)
[2025-03-29 19:32] LABS: Red Blood Cells, Urine TNTC /hpf (0-2)
[2025-03-29] MEDS ORDERED: ONDA4 PO (20:52)
[2025-03-29 21:00] VITALS: BP 129/56
== END 2025-03-29 21:15 | disposition home or self-care (01) ==
LOC: ER 18:14
PROVIDERS: Emergency Medicine
DX: E87.6 Hypokalemia (principal); R11.2 Nausea with vomiting, unspecified; Z88.8 Allergy status to other drugs, medicaments and biological substances; Z79.899 Other long term (current) drug therapy; I11.0 Hypertensive heart disease with heart failure; I50.9 Heart failure, unspecified; J44.9 Chronic obstructive pulmonary disease, unspecified
CPT/HCPCS: 74177; 80053; 81001; 83690; 83735; 85025; 93005; 93010; 99284-25; A9270; Q9967